=== PATIENT | male | born 1975 | race Caucasian/White ===

== ENCOUNTER 2018-10-27 10:51 | Emergency (ER) | payer SELFPAY ==
[2018-10-27] MEDS ORDERED: IBUPROFEN 400 MG TAB ONE (12:16)
[2018-10-27 12:35] LABS: Absolute Lymphocytes (CBC) 1.1 K/uL (0.7-4.9); Absolute Monocytes 0.9 K/uL (0.1-1.3); Absolute Neutrophil 2.3 K/uL (1.8-8.0); Basophils % 0.5 % (0-1.3); Eosinophils % 1.6 % (0-4.4); Hematocrit 56.4 % (39.6-49.0); Lymphocytes % 25.6 % (15.3-44.8); MPV 8.6 fL (7.6-11.3); Monocytes % 20.7 % (3.3-12.3); RBC Red Blood Cell Count 6.63 M/uL (4.33-5.43)
--- NOTE | 2018-10-27 12:45 | RAD REPORT ---
EXAM DESCRIPTION: Alexis Gallagher (2 Views)10/27/2018 12:31 pm CLINICAL HISTORY: Cough COMPARISON: None FINDINGS: The lungs appear clear of acute infiltrate. The heart is normal size IMPRESSION: No acute abnormalities displayed
[2018-10-27 13:14] LABS: Albumin 4.4 g/dL (3.4-5.0); Bilirubin Total 0.6 mg/dL (0.2-1.0); Potassium 4.5 mmol/L (3.5-5.1)
--- NOTE | 2018-10-27 13:31 | EDPHYS ---
Physician Documentation [facility] Name: Ranjan Ventura Age: 43 yrs Sex: Male : 1975 Arrival Date: 10/27/2018 Time: 10:54 Bed 13 Private MD: ED Physician Stu Rabago HPI: 10/27 11:53 This 43 yrs old Male presents to ER via Ambulatory with complaints of Flu jmm Symptoms. 11:53 The patient or guardian reports cough. Onset: The symptoms/episode began/occurred jmm gradually, 6 day(s) ago. Modifying factors: The symptoms are alleviated by nothing. the symptoms are aggravated by nothing. This is a 43 year old male with a history of htn that presents to the ED with complaints of cough, fever, vomiting, diarrhea beginning 6 days ago. Children had similar symptoms 1 week ago. Patient states he had a steroid injection this past Sunday with no relief. . Historical: - Allergies: 10:59 No Known Allergies; sg - Home Meds: 10:59 Lisinopril Oral [Active]; sg - PMHx: 10:59 Hypertension; sg - PSHx: 10:59 Hernia repair; sg - Immunization history:: Adult Immunizations not up to date. - Social history:: Smoking status: Patient/guardian denies using tobacco. - Ebola Screening: : Patient negative for fever greater than or equal to 101.5 degrees Fahrenheit, and additional compatible Ebola Virus Disease symptoms Patient denies exposure to infectious person Patient denies travel to an Ebola-affected area in the 21 days before illness onset No symptoms or risks identified at this time. ROS: 11:53 Constitutional: Positive for body aches, fever. jmm 11:53 Respiratory: Positive for cough. 11:53 Abdomen/GI: Positive for vomiting, diarrhea. 11:53 All other systems are negative. Exam: 11:53 Constitutional: This is a well developed, well nourished patient who is awake, alert, jmm and in no acute distress. Head/Face: atraumatic. Eyes: EOMI, no conjunctival erythema appreciated ENT: Moist Mucus Membranes Neck: Trachea midline, Supple Chest/axilla: Normal chest wall appearance and motion. Cardiovascular: Regular rate and rhythm. No edema appreciated Respiratory: Normal respirations, no respiratory distress appreciated 11:53 Skin: General appearance color normal MS/ Extremity: Moves all extremities, no obvious deformities appreciated, no edema noted to the lower extremities Neuro: Awake and alert, normal gait Psych: Behavior is normal, Mood is normal, Patient is cooperative and pleasant 11:53 Abdomen/GI: Inspection: abdomen appears normal, Bowel sounds: normal, Palpation: abdomen is soft and non-tender, in all quadrants. Vital Signs: 10:57 BP 165 / 95; Pulse 88; Resp 18; Temp 98.6; Pulse Ox 99% on R/A; Pain 10/10; sg 13:29 BP 149 / 95 LA Supine (auto/lg); Pulse 63 MON; Resp 16 S; Pulse Ox 95% on R/A; Pain ds4 0/10; MDM: 11:51 Patient medically screened. [facility] 13:29 Data reviewed: vital signs, EMS record. Counseling: I had a detailed discussion with [facility] the patient and/or guardian regarding: the historical points, exam findings, and any diagnostic results supporting the discharge/admit diagnosis, lab results, the need for outpatient follow up, to return to the emergency department if symptoms worsen or persist or if there are any questions or concerns that arise at home. ED course: Patient is alert and non toxic in appearance in the ED. No signs of resp distress are appreciated. Patient is given return precautions for shortness of breath, vomiting, abdominal pain, ect. Patient understood and agrees with the plan of care. . 10/27 11:00 Order name: Flu; Complete Time: 12:24 10/27 11:52 Order name: CBC with Diff [facility] 10/27 11:52 Order name: CMP [facility] 10/27 11:52 Order name: Chest Pa And Lat (2 Views) XRAY; Complete Time: 12:52 [facility] 10/27 12:38 Order name: Manual Differential [facility] 10/27 11:52 Order name: Saline Lock; Complete Time: 12:19 [facility] Administered Medications: 12:12 Drug: Motrin 800 mg Route: PO; tw2 13:38 Follow up: Response: No adverse reaction tw2 12:54 CANCELLED (Duplicate Order): NS 0.9% 1000 ml IV at 1 bolus Per protocol; 1000 mL bolus [facility] Disposition: 18:11 Co-signature as Attending Physician, Stu Rabago MD. rn Disposition: 10/27/18 13:30 Discharged to Home. Impression: Other viral infections of unspecified site. - Condition is Stable. - Discharge Instructions: Food Choices to Help Relieve Diarrhea, Adult, Nausea and Vomiting, Adult, Viral Respiratory Infection. - Prescriptions for Zofran ODT 4 mg Oral tablet,disintegrating - place 1 tablet by TRANSLINGUAL route every 4-6 hours; 20 tablet. Bentyl 20 mg Oral Tablet - take 2 tablet by ORAL route every 6 hours As needed; 40 tablet. - Medication Reconciliation Form, Thank You Letter, Antibiotic Education, Prescription Opioid Use, Work release form form. - Follow up: Private Physician; When: 2 - 3 days; Reason: Recheck today's complaints, Continuance of care, Re-evaluation by your physician. Signatures: Dispatcher [employer] EDRobel Olivares, RN RN Simone Damon PA PA jmm Nieto, Roman, MD MD rn Wise, Tara, RN RN tw2 Corrections: (The following items were deleted from the chart) 12:54 12:53 NS 0.9% 1000 ml IV at 1 bolus Per protocol; 1000 mL bolus ordered. barbara jimenez 13:38 13:30 10/27/2018 13:30 Discharged to Home. Impression: Other viral infections of tw2 unspecified site. Condition is Stable. Forms are Work release form, Medication Reconciliation Form, Thank You Letter, Antibiotic Education, Prescription Opioid Use. Follow up: Private Physician; When: 2 - 3 days; Reason: Recheck today's complaints, Continuance of care, Re-evaluation by your physician. barbara
--- NOTE | 2018-10-27 13:31 | ER ---
Nurse's Notes [facility] Name: Ranjan Ventura Age: 43 yrs Sex: Male : 1975 Arrival Date: 10/27/2018 Time: 10:54 Bed 13 Private MD: Diagnosis: Other viral infections of unspecified site Presentation: 10/27 10:57 Presenting complaint: Presenting complaint: Patient states: was recently diagnosed sg with Flu, was seen and evaluated by for Flu, reports having tested negative on , symptoms worsening at this time, with fever/body aches/nausea. 11:00 Transition of care: patient was not received from another setting of care. Onset of sg symptoms was October 27, 2018. Risk Assessment: Do you want to hurt yourself or someone else? Patient reports no desire to harm self or others. Initial Sepsis Screen: Does the patient meet any 2 criteria? No. Patient's initial sepsis screen is negative. Does the patient have a suspected source of infection? No. Patient's initial sepsis screen is negative. Care prior to arrival: None. 11:00 Method Of Arrival: Ambulatory sg 11:00 Acuity: JAYLYN 4 sg Historical: - Allergies: 10:59 No Known Allergies; sg - Home Meds: 10:59 Lisinopril Oral [Active]; sg - PMHx: 10:59 Hypertension; sg - PSHx: 10:59 Hernia repair; sg - Immunization history:: Adult Immunizations not up to date. - Social history:: Smoking status: Patient/guardian denies using tobacco. - Ebola Screening: : Patient negative for fever greater than or equal to 101.5 degrees Fahrenheit, and additional compatible Ebola Virus Disease symptoms Patient denies exposure to infectious person Patient denies travel to an Ebola-affected area in the 21 days before illness onset No symptoms or risks identified at this time. Screenin:23 Abuse screen: Denies threats or abuse. Nutritional screening: No deficits noted. tw2 Tuberculosis screening: No symptoms or risk factors identified. Fall Risk None identified. Assessment: 11:23 General: Appears in no apparent distress. Behavior is calm, cooperative, appropriate tw2 for age. Pain: Complains of pain in all over aches. Neuro: Level of Consciousness is awake, alert, obeys commands, Oriented to person, place, time, situation. Cardiovascular: Capillary refill. Respiratory: Reports cough that is Airway is patent Respiratory effort is even, unlabored, Respiratory pattern is regular, symmetrical. GI: No signs and/or symptoms were reported involving the gastrointestinal system. : No signs and/or symptoms were reported regarding the genitourinary system. EENT: Reports nasal congestion nasal discharge. Derm: No signs and/or symptoms reported regarding the dermatologic system. Musculoskeletal: Range of motion: intact in all extremities. 12:30 Reassessment: Patient appears in no apparent distress at this time. No changes from tw2 previously documented assessment. Patient and/or family updated on plan of care and expected duration. Pain level reassessed. Patient is alert, oriented x 3, equal unlabored respirations, skin warm/dry/pink. 13:38 Reassessment: Patient appears in no apparent distress at this time. No changes from tw2 previously documented assessment. Patient and/or family updated on plan of care and expected duration. Pain level reassessed. Patient is alert, oriented x 3, equal unlabored respirations, skin warm/dry/pink. Vital Signs: 10:57 BP 165 / 95; Pulse 88; Resp 18; Temp 98.6; Pulse Ox 99% on R/A; Pain 10/10; sg 13:29 BP 149 / 95 LA Supine (auto/lg); Pulse 63 MON; Resp 16 S; Pulse Ox 95% on R/A; Pain ds4 0/10; ED Course: 10:54 Patient arrived in ED. as 10:54 Arm band placed on. sg 11:01 Triage completed. sg 11:19 Simone Jara PA is PHCP. [facility] 11:20 Stu Rabago MD is Attending Physician. [facility] 11:22 Destinee Talbert, APPLE is Primary Nurse. tw2 11:23 Bed in low position. Pulse ox on. NIBP on. tw2 12:15 Inserted saline lock: 20 gauge in right antecubital area, using aseptic technique. tw2 Blood collected. 12:30 Chest Pa And Lat (2 Views) XRAY In Process Unspecified. EDMS 13:37 No provider procedures requiring assistance completed. IV discontinued, intact, tw2 bleeding controlled, No redness/swelling at site. Pressure dressing applied. Administered Medications: 12:12 Drug: Motrin 800 mg Route: PO; tw2 13:38 Follow up: Response: No adverse reaction tw2 12:54 CANCELLED (Duplicate Order): NS 0.9% 1000 ml IV at 1 bolus Per protocol; 1000 mL bolus barbara Outcome: 13:30 Discharge ordered by . barbara 13:37 Discharged to home ambulatory, with family. tw2 13:37 Condition: stable 13:37 Discharge instructions given to patient, family, Instructed on discharge instructions, follow up and referral plans. no drinking with medication, no driving heavy equipment, medication usage, Demonstrated understanding of instructions, follow-up care, medications, Prescriptions given X 2. 13:38 Patient left the ED. tw2 Signatures: Dispatcher [employer] EDMS Robel Pisano RN RN sg Simone Jara PA PA jmm Martinez, Amelia as Swanson, Donovan ds4 Destinee Talbert RN RN tw2 Corrections: (The following items were deleted from the chart) 11:01 10:57 Presenting complaint: sg sg
[2018-10-27 14:14] LABS: Blood Morphology Comment NOT SEEN (NOT SEEN); Platelet Estimate ADEQ
== END 2018-10-27 13:38 | disposition home or self-care (01) ==
LOC: ER 10:51
DX: B34.8 Other viral infections of unspecified site (principal); I10 Essential (primary) hypertension
CPT/HCPCS: 36415; 71046; 80053; 85025; 87804; 99284